=== PATIENT | female | born 1960 | race Two or more races ===

== ENCOUNTER 2017-06-12 16:46 | Emergency (ER) | payer MEDICAID ==
[~2017-06-12] VITALS: Ht 157.5 cm; Wt 59.0 kg
[2017-06-12 17:25] VITALS: BP 150/80
[2017-06-12] MEDS ORDERED: Cyclobenzaprine 10mg Tab ORAL ONE (18:45)
[2017-06-12] MEDS ORDERED: Ketorolac 60mg Inj IM ONE (18:45)
[2017-06-12] MEDS ORDERED: IBUPROFEN600 MG ORAL (18:51)
[2017-06-12] MEDS ORDERED: ROBAXIN-750750 MG PO (18:51)
[2017-06-12 19:16] VITALS: BP 150/80
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
--- NOTE | 2017-06-13 11:48 | Diagnostic Imaging Report ---
Indications: Reason For Exam: PAIN Technique: Three views of the left knee Comparison: None Findings: No acute fractures. No dislocations. Joint spaces are preserved. No radiopaque foreign body. Normal mineralization. Impression: No acute process
--- NOTE | 2017-06-13 12:02 | Diagnostic Imaging Report ---
Indication: Pain Technique: Continuous helical CT scanning of the head was performed without intravenous contrast material. Axial and coronal 5 mm sections were generated. Radiation dose was minimized using automated exposure control Dose: Total Dose Length Product - DLP [address] Dose Index - CTDIvol(s) 70.38 mGy. Comparison: none Findings: The ventricular system is normal in size and configuration. There is no shift of midline structures. No abnormal extra-axial fluid collections are noted. There is no evidence of intracerebral bleeding. No other abnormal high or low density areas are noted within the brain. There is a right maxillary sinus air-fluid level. Visualized orbits are unremarkable. Intact calvarium Impression: Normal CT scan of the head without contrast material. Incidental finding right maxillary sinus with air-fluid level, may indicate acute sinusitis The CT scanner at [facility] is accredited by the [employer] and the scans are performed using protocols designed to limit radiation exposure to as low as reasonably achievable to attain images of sufficient resolution adequate for diagnostic evaluation.
--- NOTE | 2017-06-13 12:27 | Diagnostic Imaging Report ---
Indication: Reason For Exam: PAIN Technique: Spiral acquisitions obtained through the cervical spine. No IV contrast utilized. Multiplanar reconstructions were generated. Total dose length product 288.78 mGycm. CTDIvol(s) 14.12 mGy. Dose reduction achieved using automated exposure control. Comparison: none Findings: Bony alignment is normal. Vertebral body heights are preserved. No acute fractures. No dislocations. There is degenerative disc narrowing at C5-6. The remaining disc spaces are preserved. There is moderate right and mild left neural foraminal stenosis at C5-6. No significant disc bulge or protrusion or spinal stenosis. Elsewhere, no significant disc bulge or protrusion or spinal or neural foraminal stenosis demonstrated There is a right maxillary sinus air-fluid level. There is narrowing of the bilateral temporomandibular joint spaces The extraspinal soft tissues are unremarkable. Impression: No acute bony trauma Degenerative changes at C5-6 as described Degenerative changes of the bilateral temporomandibular joints Right maxillary sinus air-fluid level consistent with acute sinusitis This agrees with the preliminary interpretation provided overnight by [facility]. The CT scanner at [facility] is accredited by the [employer] and the scans are performed using protocols designed to limit radiation exposure to as low as reasonably achievable to attain images of sufficient resolution adequate for diagnostic evaluation.
== END 2017-06-12 19:17 | disposition home or self-care (01) ==
LOC: EDBD 16:46 → EMR 18:00
DX: S16.1XXA Strain of muscle, fascia and tendon at neck level, initial encounter (principal); V49.40XA Driver injured in collision with unspecified motor vehicles in traffic accident, initial encounter; Y92.410 Unspecified street and highway as the place of occurrence of the external cause; M25.562 Pain in left knee; R51 Headache
CPT/HCPCS: 70450; 72125; 96372; 99284